=== PATIENT | male | born 1980 | race Two or more races ===

== ENCOUNTER 2023-07-23 23:23 | Emergency (ER) | payer BC ==
--- NOTE | 2023-07-24 00:10 | ED ---
General Adult HPI - General Source: patient, RN notes reviewed Mode of arrival: ambulatory Limitations: no limitations <Eli Kay - Last Filed: 07/23/23 23:58> - General Source: RN notes reviewed, old records reviewed Mode of arrival: ambulatory Limitations: no limitations - History of Present Illness -: week(s) Location: head Radiation: non-radiation Severity scale (1-10): 7 Quality: sharp Consistency: intermittent Improves with: none Worsens with: none Associated Symptoms: confusion, weakness Treatments Prior to Arrival: none <Deon Herman - Last Filed: 08/02/23 01:05> - General Chief complaint: Altered Mental Status Stated complaint: Altered Mental, Alcohol Withdrawal - History of Present Illness Initial comments: 43-year-old male presents to the emergency department for evaluation of possible alcohol withdrawal symptoms. Last drink was Wednesday. Patient has been "day drinking" for the past few months. Family states that the patient has been more confused. (Eli Kay) This is a 43-year-old male to the ER today. This patient Dese for concern of possible alcohol issues or alcohol withdrawal symptoms. Patient been drinking heavily for a few months now but at bedside states patient is acting more diffuse in his been complaining of headaches. (Deon Herman) - Related Data Allergies Allergy/AdvReac Type Severity Reaction Status Date / Time No Known Allergies Allergy Verified 07/23/23 23:41 Review of Systems ROS Other: All systems not noted in ROS Statement are negative. <Eli Kay - Last Filed: 07/23/23 23:58> ROS Other: All systems not noted in ROS Statement are negative. <Deon Herman - Last Filed: 08/02/23 01:05> ROS Statement: Those systems with pertinent positive or pertinent negative responses have been documented in the HPI. Past Medical History Additional Past Medical History / Comment(s): gout, skin disorder History of Any Multi-Drug Resistant Organisms: None Reported Past Surgical History: No Surgical Hx Reported Past Psychological History: No Psychological Hx Reported Smoking Status: Current every day smoker Past Alcohol Use History: Abuse, Daily Past Drug Use History: Marijuana <Eli Kay - Last Filed: 07/23/23 23:58> General Exam Limitations: no limitations <Eli Kay - Last Filed: 07/23/23 23:58> General appearance: alert, in no apparent distress, anxious Head exam: Present: atraumatic, normocephalic, normal inspection Eye exam: Present: normal appearance, PERRL, EOMI. Absent: scleral icterus, c onjunctival injection, periorbital swelling ENT exam: Present: normal exam, mucous membranes moist Neck exam: Present: normal inspection. Absent: tenderness, meningismus, lymphadenopathy Respiratory exam: Present: normal lung sounds bilaterally. Absent: respiratory distress, wheezes, rales, rhonchi, stridor Cardiovascular Exam: Present: regular rate, normal rhythm, normal heart sounds. Absent: systolic murmur, diastolic murmur, rubs, gallop, clicks GI/Abdominal exam: Present: soft, normal bowel sounds. Absent: distended, tenderness, guarding, rebound, rigid Extremities exam: Present: normal inspection, full ROM, normal capillary refill. Absent: tenderness, pedal edema, joint swelling, calf tenderness Back exam: Present: normal inspection Neurological exam: Present: alert, oriented X3, CN II-XII intact Psychiatric exam: Present: normal affect, normal mood Skin exam: Present: warm, dry, intact, normal color. Absent: rash <Deon Herman - Last Filed: 08/02/23 01:05> - General Exam Comments Initial Comments: Visual Physical Exam Vital signs reviewed General: Well-appearing, nontoxic, no acute distress. Head: Normocephalic, atraumatic Eyes: PERRLA, EOMI ENT: Airway patent Chest: Nonlabored breathing Skin: No visual rash, normal skin tone Neuro: Alert and oriented 3 Musculoskeletal: No gross abnormalities (Eli Kay) Patient does appear altered on questioning difficult to ascertain symptoms but no focal neurological symptoms (Deon Herman) Course <Deon Herman - Last Filed: 08/02/23 01:05> Vital Signs 07/23/23 07/24/23 07/24/23 23:41 03:15 04:32 Temperature 97.8 F 98 F 98.3 F Pulse Rate 73 65 73 Respiratory 16 18 18 Rate Blood Pressure 120/76 124/85 126/80 O2 Sat by Pulse 98 100 98 Oximetry - Reevaluation(s) Reevaluation #1: 07/24/23 04:12 Medical record is reviewed (Deon Herman) Reevaluation #2: 07/24/23 04:12 Patient has no change in symptoms here in the ER with negative alcohol lab value which we had to redraw CT was obtained (Deon Herman) Reevaluation #3: 07/24/23 04:12 Patient and informed of results and questions are answered (Deon Herman) Reevaluation #4: 07/24/23 04:13 Was pt. sent in by a medical professional or institution (, [facility], ENGINEERING ASSOCIATE, urgent care, hospital, or detention...) When possible be specific @ -no Did you speak to anyone other than the patient for history (EMS, parent, family, police, friend...)? What history was obtained from this source @ -no Did you review nursing and triage notes (agree or disagree)? Why? @ -agree Are old charts reviewed (outside hosp., previous admission, EMS record, old EKG, old radiological studies, urgent care reports/EKG's, detention records)? Report findings @ -yes Differential Diagnosis (chest pain, altered mental status, abdominal pain women, abdominal pain men, vaginal bleeding, weakness, fever, dyspnea, syncope, headache, dizziness, GI bleed, back pain, seizure, CVA, palpatations, mental health, musculoskeletal)? @ -prior EKG interpreted by me (3pts min.). @ -yes X-rays interpreted by me (1pt min.). @ -no CT interpreted by me (1pt min.). @ -yes positive versus brain mass with herniation U/S interpreted by me (1pt. min.). @ -no What testing was considered but not performed or refused? (CT, X-rays, U/S, labs)? Why? @ -none What meds were considered but not given or refused? Why? @ -none Did you discuss the management of the patient with other professionals (professionals i.e. [facility] [place], ENGINEERING ASSOCIATE, lab, RT, psych nurse, social media strategist, bottom ironer, teacher, flight radio officer, case finishing machine adjuster)? Give summary @ -no Was smoking cessation discussed for >3mins.? @ -no Was critical care preformed (if so, how long)? @ -yes31 Were there social determinants of health that impacted care today? How? (Home lessness, low income, unemployed, alcoholism, drug addiction, transportation, low edu. Level, literacy, decrease access to med. care, nursing home, rehab)? @ -none Was there de-escalation of care discussed even if they declined (Discuss DNR or withdrawal of care, Hospice)? DNR status @ -no What co-morbidities impacted this encounter? (DM, HTN, Smoking, COPD, CAD, Cancer, CVA, ARF, Chemo, Hep., AIDS, mental health diagnosis, sleep apnea, morbid obesity)? @ -none Was patient admitted / discharged? Hospital course, mention meds given and route, prescriptions, significant lab abnormalities, going to OR and other pertinent info. @ - 43 male to the emergency department for evaluation of altered mental status. Patient is found to have significant intracranial hemorrhage pain cystic mass and lesion with edema. Transferred [facility] Admitted Undiagnosed new problem with uncertain prognosis? @ -no Drug Therapy requiring intensive monitoring for toxicity (Heparin, Nitro, Insulin, Cardizem)? @ -no Were any procedures done? @ -no Diagnosis/symptom? @ -Brain mass, edema with herniation, AMS Acute, or Chronic, or Acute on Chronic? @ -Acute Uncomplicated (without systemic symptoms) or Complicated (systemic symptoms)? @ -Complicated Side effects of treatment? @ -no Exacerbation, Progression, or Severe Exacerbation? @ -exacerbation Poses a threat to life or bodily function? How? (Chest pain, USA, SD, pneumonia, PE, COPD, DKA, ARF, appy, cholecystitis, CVA, Diverticulitis, Homicidal, Suicidal, threat to staff... and all critical care pts) @ -yes significant brain edema with herniation (Deon Herman) Reevaluation #5: 07/24/23 04:13 Differential Altered Mental Status: Hypoglycemia, DKA, hypercapnia, ETOH, overdose, CO poisoning, trauma, myxedema coma, HTN encephalopathy, infection, encephalitis, psychosis, intercranial hemorrhage, hepatic encephalopathy, meningitis, CVA, this is not meant to be an all-inclusive list (Deon Herman) - Consultations Consultation #1: spoke emely [facility] who agree to accept the patient in transfer (Deon Herman) Medical Decision Making <Eli Kay - Last Filed: 07/23/23 23:58> - Lab Data Result diagrams: 07/24/23 01:03 07/24/23 01:03 - Radiology Data Radiology results: report reviewed (CT brain is positive for intracranial hemorrhage, mass, herniation), image reviewed <Deon Herman - Last Filed: 08/02/23 01:05> - Medical Decision Making Quick note preformed by Eli Kay PA-C (Eli Kay) 43 male to the emergency department for evaluation of altered mental status. Patient is found to have significant intracranial hemorrhage pain cystic mass and lesion with edema (Deon Herman) - Lab Data Lab Results 07/24/23 07/24/23 07/24/23 Range/Units 01:03 01:03 01:03 WBC 15.8 H (3.8-10.6) k/uL RBC 5.05 (4.30-5.90) m/uL Hgb 17.1 (13.0-17.5) gm/dL Hct 50.6 (39.0-53.0) % MCV 100.3 H (80.0-100.0) fL MCH 33.8 (25.0-35.0) pg MCHC 33.7 (31.0-37.0) g/dL RDW 12.0 (11.5-15.5) % Plt Count 385 (150-450) k/uL MPV 7.6 Neutrophils % 87 % Lymphocytes % 7 % Monocytes % 5 % Eosinophils % 1 % Basophils % 0 % Neutrophils # 13.7 H (1.3-7.7) k/uL Lymphocytes # 1.0 (1.0-4.8) k/uL Monocytes # 0.8 (0-1.0) k/uL Eosinophils # 0.1 (0-0.7) k/uL Basophils # 0.0 (0-0.2) k/uL PT 10.1 (10.0-12.5) sec INR 0.9 (<1.2) APTT 23.2 (22.0-30.0) sec Sodium (137-145) mmol/L Potassium (3.5-5.1) mmol/L Chloride (98-107) mmol/L Carbon Dioxide (22-30) mmol/L Anion Gap mmol/L BUN (9-20) mg/dL Creatinine (0.66-1.25) mg/dL Est GFR (CKD-EPI)AfAm (>60 ml/min/1.73 sqM) Est GFR (CKD-EPI)NonAf (>60 ml/min/1.73 sqM) Glucose (74-99) mg/dL POC Glucose (mg/dL) (70-110) mg/dL POC Glu Batch Tank Controller ID Calcium (8.4-10.2) mg/dL Phosphorus (2.5-4.5) mg/dL Magnesium (1.6-2.3) mg/dL Total Bilirubin (0.2-1.3) mg/dL AST (17-59) U/L ALT (4-49) U/L Alkaline Phosphatase (38-126) U/L Ammonia (<30) umol/L Total Protein (6.3-8.2) g/dL Albumin (3.5-5.0) g/dL Lipase (23-300) U/L Urine Color Yellow Urine Appearance Clear (Clear) Urine pH 6.5 (5.0-8.0) Ur Specific [place] 1.029 (1.001-1.035) Urine Protein Trace H (Negative) Urine Glucose (UA) Negative (Negative) Urine Ketones 1+ H (Negative) Urine Blood Negative (Negative) Urine Nitrite Negative (Negative) Urine Bilirubin Negative (Negative) Urine Urobilinogen <2.0 (<2.0) mg/dL Ur Leukocyte Esterase Negative (Negative) Urine Opiates Screen Not Detected (NotDetected) Ur Oxycodone Screen Not Detected (NotDetected) Urine Methadone Screen Not Detected (NotDetected) Ur Barbiturates Screen Not Detected (NotDetected) U Tricyclic Antidepress Not Detected (NotDetected) Ur Phencyclidine Scrn Not Detected (NotDetected) Ur Amphetamines Screen Not Detected (NotDetected) U Methamphetamines Scrn Not Detected (NotDetected) U Benzodiazepines Scrn Not Detected (NotDetected) Urine Cocaine Screen Not Detected (NotDetected) U Marijuana (THC) Screen Detected H (NotDetected) Serum Alcohol mg/dL 07/24/23 07/24/2307/24/24 Range/Units 01:03 01:03 01:11 WBC (3.8-10.6) k/uL RBC (4.30-5.90) m/uL Hgb (13.0-17.5) gm/dL Hct (39.0-53.0) % MCV (80.0-100.0) fL MCH (25.0-35.0) pg MCHC (31.0-37.0) g/dL RDW (11.5-15.5) % Plt Count (150-450) k/uL MPV Neutrophils % % Lymphocytes % % Monocytes % % Eosinophils % % Basophils % % Neutrophils # (1.3-7.7) k/uL Lymphocytes # (1.0-4.8) k/uL Monocytes # (0-1.0) k/uL Eosinophils # (0-0.7) k/uL Basophils # (0-0.2) k/uL PT (10.0-12.5) sec INR (<1.2) APTT (22.0-30.0) sec Sodium 143 (137-145) mmol/L Potassium 4.2 (3.5-5.1) mmol/L Chloride 102 (98-107) mmol/L Carbon Dioxide 24 (22-30) mmol/L Anion Gap 17 mmol/L BUN 16 (9-20) mg/dL Creatinine 1.00 (0.66-1.25) mg/dL Est GFR (CKD-EPI)AfAm >90 (>60 ml/min/1.73 sqM) Est GFR (CKD-EPI)NonAf >90 (>60 ml/min/1.73 sqM) Glucose 123 H (74-99) mg/dL POC Glucose (mg/dL) 117 H (70-110) mg/dL POC Glu Batch Tank Controller ID Binh Carbajal Calcium 10.4 H (8.4-10.2) mg/dL Phosphorus (2.5-4.5) mg/dL Magnesium (1.6-2.3) mg/dL Total Bilirubin 0.6 (0.2-1.3) mg/dL AST 27 (17-59) U/L ALT 54 H (4-49) U/L Alkaline Phosphatase 102 (38-126) U/L Ammonia <9 (<30) umol/L Total Protein 8.3 H (6.3-8.2) g/dL Albumin 5.0 (3.5-5.0) g/dL Lipase (23-300) U/L Urine Color Urine Appearance (Clear) Urine pH (5.0-8.0) Ur Specific [place] (1.001-1.035) Urine Protein (Negative) Urine Glucose (UA) (Negative) Urine Ketones (Negative) Urine Blood (Negative) Urine Nitrite (Negative) Urine Bilirubin (Negative) Urine Urobilinogen (<2.0) mg/dL Ur Leukocyte Esterase (Negative) Urine Opiates Screen (NotDetected) Ur Oxycodone Screen (NotDetected) Urine Methadone Screen (NotDetected) Ur Barbiturates Screen (NotDetected) U Tricyclic Antidepress (NotDetected) Ur Phencyclidine Scrn (NotDetected) Ur Amphetamines Screen (NotDetected) U Methamphetamines Scrn (NotDetected) U Benzodiazepines Scrn (NotDetected) Urine Cocaine Screen (NotDetected) U Marijuana (THC) Screen (NotDetected) Serum Alcohol mg/dL 07/24/23 Range/Units 01:48 WBC (3.8-10.6) k/uL RBC (4.30-5.90) m/uL Hgb (13.0-17.5) gm/dL Hct (39.0-53.0) % MCV (80.0-100.0) fL MCH (25.0-35.0) pg MCHC (31.0-37.0) g/dL RDW (11.5-15.5) % Plt Count (150-450) k/uL MPV Neutrophils % % Lymphocytes % % Monocytes % % Eosinophils % % Basophils % % Neutrophils # (1.3-7.7) k/uL Lymphocytes # (1.0-4.8) k/uL Monocytes # (0-1.0) k/uL Eosinophils # (0-0.7) k/uL Basophils # (0-0.2) k/uL PT (10.0-12.5) sec INR (<1.2) APTT (22.0-30.0) sec Sodium (137-145) mmol/L Potassium (3.5-5.1) mmol/L Chloride (98-107) mmol/L Carbon Dioxide (22-30) mmol/L Anion Gap mmol/L BUN (9-20) mg/dL Creatinine (0.66-1.25) mg/dL Est GFR (CKD-EPI)AfAm (>60 ml/min/1.73 sqM) Est GFR (CKD-EPI)NonAf (>60 ml/min/1.73 sqM) Glucose (74-99) mg/dL POC Glucose (mg/dL) (70-110) mg/dL POC Glu Batch Tank Controller ID Calcium (8.4-10.2) mg/dL Phosphorus 4.6 H (2.5-4.5) mg/dL Magnesium 1.9 (1.6-2.3) mg/dL Total Bilirubin (0.2-1.3) mg/dL AST (17-59) U/L ALT (4-49) U/L Alkaline Phosphatase (38-126) U/L Ammonia (<30) umol/L Total Protein (6.3-8.2) g/dL Albumin (3.5-5.0) g/dL Lipase 49 (23-300) U/L Urine Color Urine Appearance (Clear) Urine pH (5.0-8.0) Ur Specific [place] (1.001-1.035) Urine Protein (Negative) Urine Glucose (UA) (Negative) Urine Ketones (Negative) Urine Blood (Negative) Urine Nitrite (Negative) Urine Bilirubin (Negative) Urine Urobilinogen (<2.0) mg/dL Ur Leukocyte Esterase (Negative) Urine Opiates Screen (NotDetected) Ur Oxycodone Screen (NotDetected) Urine Methadone Screen (NotDetected) Ur Barbiturates Screen (NotDetected) U Tricyclic Antidepress (NotDetected) Ur Phencyclidine Scrn (NotDetected) Ur Amphetamines Screen (NotDetected) U Methamphetamines Scrn (NotDetected) U Benzodiazepines Scrn (NotDetected) Urine Cocaine Screen (NotDetected) U Marijuana (THC) Screen (NotDetected) Serum Alcohol <10 mg/dL Critical Care Time Critical Care Time: Yes Total Critical Care Time: 31 <Deon Herman - Last Filed: 08/02/23 01:05> Disposition <Eli Kay - Last Filed: 07/23/23 23:58> Is patient prescribed a controlled substance at d/c from ED?: No Time of Disposition: 04:10 - Out of Hospital Transfer - Req. Specs Out of Hospital Transfer - Requested Specifics: Other Emergency Center ([facility]) <Deon Herman - Last Filed: 08/02/23 01:05> Clinical Impression: Altered mental status, Brain mass, Brain edema, Brain herniation Disposition: OTHER INSTITUTION NOT DEFINED Condition: Serious Referrals: None,Stated [REFERRING] - 1-2 days
[2023-07-24 01:13] LABS: Glucose,Whole Blood 117 mg/dL (70-110)
[2023-07-24 01:27] LABS: Basophils % (A) 0 %; Eosinophils # (A) 0.1 k/uL (0-0.7); Eosinophils % (A) 1 %; HCT 50.6 % (39.0-53.0); HGB 17.1 gm/dL (13.0-17.5); Lymphocytes % (A) 7 %; MCH 33.8 pg (25.0-35.0); MCHC 33.7 g/dL (31.0-37.0); MCV 100.3 fL (80.0-100.0); Mean Platelet Volume 7.6; Monocytes # (A) 0.8 k/uL (0-1.0); Monocytes % (A) 5 %; Neutrophils # (A) 13.7 k/uL (1.3-7.7); Neutrophils % (A) 87 %; Platelet Count 385 k/uL (150-450); RBC 5.05 m/uL (4.30-5.90); WBC 15.8 k/uL (3.8-10.6)
[2023-07-24] MEDS ORDERED: SODIUM CHLORIDE 0.9% 500 ML 500 ML IV STA (01:28)
[2023-07-24] MEDS ORDERED: SODIUM CHLORIDE 0.9% 1,000 ML IV STA (01:28)
[2023-07-24 01:37] LABS: INR 0.9 (<1.2); Partial Thromboplastin Time 23.2 sec (22.0-30.0); Prothrombin Time 10.1 sec (10.0-12.5)
[2023-07-24 02:15] LABS: ALT 54 U/L (4-49); AST 27 U/L (17-59); African American GFR (CKD) >90 (>60 ml/min/1.73 sqM); Alkaline Phosphatase 102 U/L (38-126); Anion Gap 17 mmol/L; Blood Urea Nitrogen 16 mg/dL (9-20); Calcium 10.4 mg/dL (8.4-10.2); Carbon Dioxide 24 mmol/L (22-30); Chloride 102 mmol/L (98-107); Glucose 123 mg/dL (74-99); Non-African American GFR(CKD) >90 (>60 ml/min/1.73 sqM); Potassium 4.2 mmol/L (3.5-5.1); Sodium 143 mmol/L (137-145); Total Bilirubin 0.6 mg/dL (0.2-1.3); Total Protein 8.3 g/dL (6.3-8.2)
[2023-07-24 02:41] LABS: Appearance,Urine Clear (Clear); Bilirubin,Urine Negative (Negative); Blood,Urine Negative (Negative); Color,Urine Yellow; Glucose,Urine (UA) Negative (Negative); Ketones,Urine 1+ (Negative); Leukocyte Esterase,Urine Negative (Negative); Nitrite,Urine Negative (Negative); PH, Urine 6.5 (5.0-8.0); Protein,Urine Trace (Negative); Specific Gravity,Urine 1.029 (1.001-1.035); Urobilinogen,Urine <2.0 mg/dL (<2.0)
[2023-07-24 02:57] LABS: Amphetamine Screen,Urine Not Detected (NotDetected); Barbiturate Screen,Urine Not Detected (NotDetected); Benzodiazepines Screen,Urine Not Detected (NotDetected); Cocaine Screen,Urine Not Detected (NotDetected); Methadone Screen, Urine Not Detected (NotDetected); Opiate Screen,Urine Not Detected (NotDetected); Oxycodone Screen, Urine Not Detected (NotDetected); Phencyclidine Screen,Urine Not Detected (NotDetected); Tricyclic Antidepressant,Urine Not Detected (NotDetected); Urn Cannabinoid Scrn Detected (NotDetected)
[2023-07-24 03:00] LABS: Alcohol <10 mg/dL; Lipase 49 U/L (23-300); Magnesium 1.9 mg/dL (1.6-2.3); Phosphorus 4.6 mg/dL (2.5-4.5)
[2023-07-24 03:41] VITALS: RESP 18
--- NOTE | 2023-07-24 03:53 | CT ---
EXAM: CT Head Without Intravenous Contrast CLINICAL HISTORY: ITS.REASON CT Reason: peña TECHNIQUE: Axial computed tomography images of the head/brain without intravenous contrast. CTDI is 49.2 mGy and DLP is 1124.4 mGy-cm. This CT exam was performed using one or more of the following dose reduction techniques: automated exposure control, adjustment of the mA and/or kV according to patient size, and/or use of iterative reconstruction technique. COMPARISON: No relevant prior studies available. FINDINGS: Brain: Medial left frontal 31 x 43 x 18 mm cystic area (series 200 image 31, series 203 image 26) probably within a 65 mm mass, with vasogenic edema, and subtle internal hyperdensity, suggestive of hemorrhage. Significant mass-effect causing approximately 11 mm left to right midline shift, effacement of the left hemispheric cortical sulci, and the basilar cisterns. Ventricles: Probable developing mild right hydrocephalus. Bones/joints: Unremarkable. No acute fracture. Soft tissues: Unremarkable. Sinuses: Right maxillary sinus mucus retention cysts. Hypoplastic frontal sinuses. Mastoid air cells: Unremarkable as visualized. No mastoid effusion. IMPRESSION: Large left frontal partially cystic and possibly hemorrhagic mass associated with vasogenic edema causing transtentorial as well as subfalcine herniation. Further imaging with pre-and postcontrast MRI recommended. <MYCVCSECTION> Communications: 07/24/23 04:44 Call Doctor Regarding Intracranial Hemorrhage, called Dr. Herman on 07/24 04:47 (-05:00)
[2023-07-24] MEDS ORDERED: DEXAMETHASONE SOD PHOSPHATE 10 MG/ML 1 ML VIAL IVP STA (04:01)
[2023-07-24 04:53] VITALS: BP 126/80; PULSE 73; TEMP 98.3
== END 2023-07-24 04:32 | disposition other institution (70) ==
LOC: EC 23:23
DX: G93.6 Cerebral edema (principal); G93.5 Compression of brain; G93.9 Disorder of brain, unspecified; R41.82 Altered mental status, unspecified; F17.200 Nicotine dependence, unspecified, uncomplicated; F12.90 Cannabis use, unspecified, uncomplicated
CPT/HCPCS: 99291 ×2; 96361 ×3; 96374 ×2; 36415; 80053; 82140; 83690; 83735; 84100; 85025; 85610; 85730; 81003; 80306; 80320; 70450; J1100

== ENCOUNTER → 2023-08-30 | Outpatient (CLI) | payer BC ==
--- NOTE | 2023-08-31 21:53 | MR ---
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 The patient was then given intravenous contrast and multi planar, T1 fat-saturation images wer e obtained. IV Contrast: 9 cc Gadavist FINDINGS: Postsurgical changes left frontal lobe with persistent masslike area measuring 45 x 36 x 39 mm. Blooming artifact around the surgical bed compatible with hemosiderin deposition. Postcontrast i maging demonstrates enhancement with thin the dominant surgical bed. Additional small enhancing area is seen near the superior aspect measuring 9 x 8 mm and one more posteriorly measuring 4 mm. There is enhancement along the dura in the surgical bed. Craniotomy changes are noted. No additional sites of abnormal enhancement identified. Diffusion-weighted imaging shows no evidence of restricted diffusio n to suggest acute/subacute infarct. Intracranial arterial flow voids are maintained. Midline structu res show no abnormality. The bone marrow signal is within normal limits. Paranasal sinuses and mastoid air cells: Mucosal thickening most proximal right maxillary sinus. Visu alized orbits: Orbital contents are intact. IMPRESSION: Posttreatment changes in the left frontal lobe with persistent post contrast enhancement within the d ominant surgical bed with satellite lesions present possibly representing persistent disease. Short-t erm follow-up recommended with IV contrast.
== END | disposition home or self-care (01) ==
LOC: RADMRIMAIN 11:01
PROVIDERS: ATTEND Radiology Radiation Oncology
DX: C71.1 Malignant neoplasm of frontal lobe (principal)
CPT/HCPCS: 70553; A9585

== ENCOUNTER 2024-01-01 15:02 | Emergency (ER) | payer BC ==
[2024-01-01 15:16] VITALS: RESP 18; TEMP 99.1
[2024-01-01] MEDS: LORazepam 2 MG/ML INJ IV STA (15:20)
--- NOTE | 2024-01-01 15:31 | ED ---
Seizure HPI - General Chief Complaint: Seizure Stated Complaint: Seizure Time Seen by Provider: 01/01/24 15:02 Source: patient, family, EMS, RN notes reviewed Mode of arrival: EMS - History of Present Illness Initial Comments: 43-year-old male with a history of glioblastoma with surgery for the same at [facility] in July of this year who also has had chemotherapy and radiation therapy and is currently on Keppra 500 mg twice a day who was brought in by EMS today because of recurrent seizure activity. He apparently was working on an air conditioner in his yard when he had with his states is a typical seizure for him lasting a short period of time but then he had a second 1 lasting about 3 minutes. He has some shaking he did spit up some blood. He also was nonverbal which is similar to what he had before. No reports of fever chills nausea vomiting sweats or other symptoms prior to this. He has not missed any medication. Of note he does have history in the past of alcohol abuse but no current such activity. No other medical problems other complaints or modifying factors no trauma reported. MD Complaint: seizure - Related Data Previous Rx's Medication Instructions Recorded LORazepam [Ativan] 2 mg PO BID 3 Days #6 tab 01/01/24 Allergies Allergy/AdvReac Type Severity Reaction Status Date / Time No Known Allergies Allergy Verified 01/01/24 15:16 Review of Systems ROS Statement: Those systems with pertinent positive or pertinent negative responses have been documented in the HPI. ROS Other: All systems not noted in ROS Statement are negative. Past Medical History Additional Past Medical History / Comment(s): gout, skin disorder History of Any Multi-Drug Resistant Organisms: None Reported Past Surgical History: No Surgical Hx Reported Past Psychological History: No Psychological Hx Reported Smoking Status: Current every day smoker Past Alcohol Use History: Abuse, Daily Past Drug Use History: Marijuana General Exam - General Exam Comments Initial Comments: Is a well-developed well-nourished awake alert nonverbal patient who does follow commands and understands questioning and is able to respond. General appearance: alert, in no apparent distress Head exam: Present: atraumatic, normocephalic, normal inspection Eye exam: Present: normal appearance, PERRL, EOMI. Absent: scleral icterus, conjunctival injection, periorbital swelling ENT exam: Present: other (Normal oral exam except for evidence of a lower lip bite josephine no suture repair indicated.) Neck exam: Present: normal inspection, full ROM, other (No stridor JVD or bruits). Absent: tenderness, meningismus, lymphadenopathy Respiratory exam: Present: normal lung sounds bilaterally. Absent: respiratory distress, wheezes, rales, rhonchi, stridor Cardiovascular Exam: Present: regular rate, normal rhythm, normal heart sounds. Absent: systolic murmur, diastolic murmur, rubs, gallop, clicks GI/Abdominal exam: Present: soft, normal bowel sounds. Absent: distended, tenderness, guarding, rebound, rigid Extremities exam: Present: normal inspection, full ROM, normal capillary refill. Absent: tenderness, pedal edema, joint swelling, calf tenderness Back exam: Present: full ROM Neurological exam: Present: alert, oriented X3, other (Patient is unable to ph alisia at this time but otherwise appears to be within normal limits). Absent: motor sensory deficit Psychiatric exam: Present: normal affect, normal mood Skin exam: Present: warm, dry, intact, normal color. Absent: rash Course Vital Signs 01/01/24 15:08 Temperature 99.1 F Pulse Rate 102 H Respiratory 18 Rate O2 Sat by Pulse 99 Oximetry - Reevaluation(s) Reevaluation #1: 01/01/24 17:58 Evaluation the patient finds he is awake alert oriented x 4 he is able to speak at this time. Medical Decision Making - Medical Decision Making I did have a long discussion with the patient and family members. He would like to go home patient did get a gram of IV Keppra he is on 500 mg twice a day he does have follow-up in 2 days. He would prefer to go home as opposed to being transferred or to be admitted to this facility. We did discuss return parameters they would like to have a benzodiazepine for standby if needed for seizure patient will be given a prescription for this. CT scan negative for any acute process old surgical sites noted. Lab work appears to be within reasonable limits. Was pt. sent in by a medical professional or institution (, PA, EAR NOSE THROAT PHYSICIAN, urgent care, hospital, or long-term...) When possible be specific @ -No Did you speak to anyone other than the patient for history (EMS, parent, family, police, friend...)? What history was obtained from this source @ -Per medics and the patient's Did you review nursing and triage notes (agree or disagree)? Why? @ -I reviewed and agree with nursing and triage notes Were old charts reviewed (outside hosp., previous admission, EMS record, old EKG, old radiological studies, urgent care reports/EKG's, long-term records)? Report findings @ -No old charts were reviewed Differential Diagnosis (chest pain, altered mental status, abdominal pain women, abdominal pain men, vaginal bleeding, weakness, fever, dyspnea, syncope, headache, dizziness, GI bleed, back pain, seizure, CVA, palpatations, mental health, musculoskeletal)? @ -Seizure post surgical EKG interpreted by me (3pts min.). @ -As above EKG interpreted by me sinus rhythm at 73 parable 169 QRS duration 97 QT/QTc 369/[address]-T wave changes. X-rays interpreted by me (1pt min.). @ -X-ray interpreted by me no evidence of acute process. CT interpreted by me (1pt min.). @ -CT plain brain interpreted by me no evidence of acute process old surgical site seen in the left frontal lobe area. No evidence of mass effect no bleeding seen. U/S interpreted by me (1pt. min.). @ -None done What testing was considered but not performed or refused? (CT, X-rays, U/S, labs)? Why? @ -None What meds were considered but not given or refused? Why? @ -None Did you discuss the management of the patient with other professionals (professionals i.e. , PA, EAR NOSE THROAT PHYSICIAN, lab, RT, psych nurse, social media intern, senior underwriter, teacher, engineering officer, block and case maker)? Give summary @ -No Was smoking cessation discussed for >3mins.? @ -No Was critical care preformed (if so, how long)? @ -No Were there social determinants of health that impacted care today? How? ( Homelessness, low income, unemployed, alcoholism, drug addiction, transportation, low edu. Level, literacy, decrease access to med. care, fci, rehab)? @ -No Was there de-escalation of care discussed even if they declined (Discuss DNR or withdrawal of care, Hospice)? DNR status @ -No What co-morbidities impacted this encounter? (DM, HTN, Smoking, COPD, CAD, Cancer, CVA, ARF, Chemo, Hep., AIDS, mental health diagnosis, sleep apnea, morbid obesity)? @ -History of glioblastoma status post surgery, status postchemotherapy, status post radiation therapy] Was patient admitted / discharged? Hospital course, mention meds given and route, prescriptions, significant lab abnormalities, going to OR and other pertinent info. @ -Hospital course per discussion with the family the patient was discharged home he will follow-up with his physicians at [facility]. Undiagnosed new problem with uncertain prognosis? @ -No Drug Therapy requiring intensive monitoring for toxicity (Heparin, Nitro, Insulin, Cardizem)? @ -No Were any procedures done? @ -No Diagnosis/symptom? @ -Breakthrough seizure, history of glioblastoma status post surgery Acute, or Chronic, or Acute on Chronic? @ -Acute Uncomplicated (without systemic symptoms) or Complicated (systemic symptoms)? @ -Placated Side effects of treatment? @ -No Exacerbation, Progression, or Severe Exacerbation? @ -Exacerbation Poses a threat to life or bodily function? How? (Chest pain, [place], [place], pneumonia, PE, COPD, DKA, ARF, appy, cholecystitis, CVA, Diverticulitis, Homicidal, Suicidal, threat to staff... and all critical care pts) @ -Potential - Lab Data Result diagrams: 01/01/24 15:30 01/01/24 15:30 Lab Results 01/01/24 01/01/24 01/01/24 Range/Units 15:30 15:30 15:30 WBC 7.2 (3.8-10.6) k/uL RBC 4.28 L (4.30-5.90) m/uL Hgb 13.2 (13.0-17.5) gm/dL Hct 40.4 (39.0-53.0) % MCV 94.3 (80.0-100.0) fL MCH 30.9 (25.0-35.0) pg MCHC 32.7 (31.0-37.0) g/dL RDW 13.9 (11.5-15.5) % Plt Count 252 (150-450) k/uL MPV 8.1 Neutrophils % 71 % Lymphocytes % 18 % Monocytes % 8 % Eosinophils % 1 % Basophils % 0 % Neutrophils # 5.1 (1.3-7.7) k/uL Lymphocytes # 1.3 (1.0-4.8) k/uL Monocytes # 0.6 (0-1.0) k/uL Eosinophils # 0.1 (0-0.7) k/uL Basophils # 0.0 (0-0.2) k/uL Sodium 135 L (137-145) mmol/L Potassium 4.0 (3.5-5.1) mmol/L Chloride 104 (98-107) mmol/L Carbon Dioxide 23 (22-30) mmol/L Anion Gap 8 mmol/L BUN 11 (9-20) mg/dL Creatinine 0.97 (0.66-1.25) mg/dL Est GFR (CKD-EPI)AfAm >90 (>60 ml/min/1.73 sqM) Est GFR (CKD-EPI)NonAf >90 (>60 ml/min/1.73 sqM) Glucose 89 (74-99) mg/dL Calcium 9.2 (8.4-10.2) mg/dL Magnesium 1.6 (1.6-2.3) mg/dL Total Bilirubin 0.5 (0.2-1.3) mg/dL AST 23 (17-59) U/L ALT 21 (4-49) U/L Alkaline Phosphatase 55 (38-126) U/L Creatine Kinase 97 (55-170) U/L Troponin I <0.012 (0.000-0.034) ng/mL Total Protein 6.4 (6.3-8.2) g/dL Albumin 4.3 (3.5-5.0) g/dL Disposition Clinical Impression: Generalized seizure, Family history of glioblastoma Disposition: HOME SELF-CARE Instructions (If sedation given, give patient instructions): Seizure/Epilepsy Discharge Instructions & Follow-Up Prescriptions: LORazepam [Ativan] 2 mg PO BID 3 Days #6 tab Is patient prescribed a controlled substance at d/c from ED?: Yes When asked, does pt state using other controlled substances?: No If prescribed controlled substance>3 days was MAPS reviewed?: Prescribed <3 Days Referrals: Danika Penaloza DO [Primary Care Provider] - 1-2 days Time of Disposition: 18:04 Decision Date: 01/01/24 Decision Time: 18:04
[2024-01-01] MEDS: levETIRAcetam IV 500 MG/5 ML VIAL IVP ONE (15:41)
[2024-01-01] MEDS: levETIRAcetam IV 1,000 MG in SODIUM CHLORIDE 0.9% 250 ML IVPB ONE (15:42)
[2024-01-01 15:44] LABS: Basophils % (A) 0 %; Eosinophils # (A) 0.1 k/uL (0-0.7); Eosinophils % (A) 1 %; HCT 40.4 % (39.0-53.0); HGB 13.2 gm/dL (13.0-17.5); Lymphocytes # (A) 1.3 k/uL (1.0-4.8); Lymphocytes % (A) 18 %; MCH 30.9 pg (25.0-35.0); MCHC 32.7 g/dL (31.0-37.0); MCV 94.3 fL (80.0-100.0); Mean Platelet Volume 8.1; Monocytes # (A) 0.6 k/uL (0-1.0); Monocytes % (A) 8 %; Neutrophils # (A) 5.1 k/uL (1.3-7.7); Neutrophils % (A) 71 %; Platelet Count 252 k/uL (150-450); RBC 4.28 m/uL (4.30-5.90); RDW 13.9 % (11.5-15.5); WBC 7.2 k/uL (3.8-10.6)
[2024-01-01 16:05] LABS: ALT 21 U/L (4-49); AST 23 U/L (17-59); African American GFR (CKD) >90 (>60 ml/min/1.73 sqM); Albumin 4.3 g/dL (3.5-5.0); Alkaline Phosphatase 55 U/L (38-126); Anion Gap 8 mmol/L; Blood Urea Nitrogen 11 mg/dL (9-20); Calcium 9.2 mg/dL (8.4-10.2); Carbon Dioxide 23 mmol/L (22-30); Chloride 104 mmol/L (98-107); Glucose 89 mg/dL (74-99); Magnesium 1.6 mg/dL (1.6-2.3); Non-African American GFR(CKD) >90 (>60 ml/min/1.73 sqM); Sodium 135 mmol/L (137-145); Total Bilirubin 0.5 mg/dL (0.2-1.3); Total Protein 6.4 g/dL (6.3-8.2)
[2024-01-01 16:06] LABS: Creatine Kinase 97 U/L (55-170)
--- NOTE | 2024-01-01 16:59 | CT ---
EXAMINATION TYPE: CT brain wo con CT DLP: 1127 mGycm, Automated exposure control for dose reduction was used. DATE OF EXAM: 01/01/2024 4:32 PM COMPARISON: MRI 11/04/2023, CT chest 07/24/2023. CLINICAL INDICATION:Male, 43 years old with history of Seizure, abnormal neuro exam, seizure/brain ca TECHNIQUE: Brain: Axial CT images of the brain were obtained with coronal and sagittal reformats created and rev iewed. Contrast used: None. Oral contrast used: None. FINDINGS: Brain: Extra-axial spaces: No abnormal extra-axial fluid collections. Ventricular system: Within normal limits Cerebral parenchyma: Postsurgical changes left frontal lobe with craniotomy changes. Wedge-shaped are a extends towards the periphery which is felt to be similar to MRI and 11/04/2023. Cerebellum: Unremarkable. Mass effect: No evidence of midline shift. Intracranial vasculature: unremarkable Soft tissues: Normal. Calvarium/osseous structures: No depressed skull fracture. Paranasal sinuses and mastoid air cells: Mild scattered paranasal sinus disease. Visualized orbits: Orbital contents are intact. IMPRESSION: Postsurgical changes left frontal lobe, no areas of acute/subacute CVA definitively visualized. Consi sachin follow-up MRI for comparisons with 11/04/2023 MRI.
--- NOTE | 2024-01-01 17:22 | XR ---
EXAMINATION TYPE: XR chest 2V DATE OF EXAM: 01/01/2024 5:13 PM CLINICAL INDICATION:Male, 43 years old with history of Seizures; [facility] COMPARISON: None TECHNIQUE: XR chest 2V Frontal and lateral views of the chest. FINDINGS: Lungs/Pleura: There is no evidence of pleural effusion, focal consolidation, or pneumothorax. Pulmonary vascularity: Unremarkable. Heart/mediastinum: Cardiomediastinal silhouette is unremarkable. Musculoskeletal: No acute osseous pathology. IMPRESSION: No acute cardiopulmonary disease/process.
[2024-01-01 18:41] VITALS: BP 116/69; PULSE 71
== END 2024-01-01 18:41 | disposition home or self-care (01) ==
LOC: EC 15:02
DX: R56.9 Unspecified convulsions (principal); F17.200 Nicotine dependence, unspecified, uncomplicated; Z92.21 Personal history of antineoplastic chemotherapy; Z92.3 Personal history of irradiation; Z85.841 Personal history of malignant neoplasm of brain; Z98.890 Other specified postprocedural states
CPT/HCPCS: 99285; 96374; 96375; 36415; 93005; 80053; 82550; 83735; 84484; 85025; 71046; 70450; J2060; J1953